=== PATIENT | female | born 1975 | race Caucasian/White ===

== ENCOUNTER 2018-07-06 15:16 | Emergency (ER) | payer BC ==
[~2018-07-06] VITALS: Wt 72.7 kg
[2018-07-06 16:12] LABS: BASO # 0.1 (0.02-0.10); EOS # 0.2 (0.04-0.40); HEMATOCRIT 44.5 % (37.0-47.0); HEMOGLOBIN 15.1 g/dL (12.5-16.0); LYMPH# 6.5 (1.50-4.00); MEAN CELL VOLUME 94 fl (78-100); MEAN CORPUSCULAR HEMOGLOBIN 32 pg (27-31); MEAN CORPUSCULAR HGB CONC 34 g/dL (33-37); MONO # 1.2 (0.20-0.80); NEU # 10.6 (1.40-6.50); PLATELET COUNT 378 K/mm3 (130-400); RED BLOOD COUNT 4.74 M/mm3 (4.10-5.30); RED CELL DISTRIBUTION WIDTH 12.8 % (11.5-14.5); WHITE BLOOD COUNT 18.6 K/mm3 (4.8-10.8)
[2018-07-06] MEDS ORDERED: HCTZ 25MG25 MG PO (16:12)
[2018-07-06] MEDS ORDERED: SINGULAIR 110 MG/TAB PO (16:14)
[2018-07-06 16:35] LABS: ALBUMIN 4.5 g/dL (3.5-5.0); ALT/SGPT 25 U/L (0-55); AST-SGOT 25 U/L (5-34); CALCIUM 9.6 mg/dL (8.4-10.2); GLUCOSE 100 mg/dL (65-105); POTASSIUM 3.3 mmol/L (3.5-5.1); SODIUM 137 mmol/L (136-145); TOTAL BILIRUBIN 0.3 mg/dL (0.2-1.2); TOTAL PROTEIN 7.6 g/dL (6.4-8.3)
[2018-07-06 16:38] LABS: CARBON DIOXIDE 16 mmol/L (22-29); TROPONIN-I < 0.03 ng/mL (<0.030)
[2018-07-06 17:00] VITALS: BP 134/88
== END 2018-07-06 17:24 | disposition home or self-care (01) ==
LOC: ED 15:16
PROVIDERS: Family Medicine
DX: R29.0 Tetany (principal); I10 Essential (primary) hypertension; F45.8 Other somatoform disorders; F17.210 Nicotine dependence, cigarettes, uncomplicated; J30.9 Allergic rhinitis, unspecified; Z90.89 Acquired absence of other organs

== ENCOUNTER → 2019-09-30 | Outpatient (CLI) | payer BC ==
[~2019-09-30] MED LIST: HCTZ 25MG25 MG PO; SINGULAIR 110 MG/TAB PO
== END ==
LOC: RAD 08:00
DX: S82.401D Unspecified fracture of shaft of right fibula, subsequent encounter for closed fracture with routine healing (principal)

== ENCOUNTER → 2019-10-05 | Outpatient (CLI) | payer BC | LOC: RAD 07:44 | DX: S82.831A Other fracture of upper and lower end of right fibula, initial encounter for closed fracture (principal) ==

== ENCOUNTER 2020-01-23 16:23 | Emergency (ER) | payer BC ==
[2020-01-23] MEDS ORDERED: ATORVASTATIN CA20 MG PO (16:38)
[2020-01-23] MEDS ORDERED: LORAZEPAM1 M1 PO (16:38)
[2020-01-23 16:58] LABS: EOS # 0.3 (0.04-0.40); EOS % 2.3 % (1.0-5.0); HEMATOCRIT 46.4 % (37.0-47.0); HEMOGLOBIN 15.7 g/dL (12.5-16.0); LYMPH# 3.7 (1.50-4.00); MEAN CELL VOLUME 95 fl (78-100); MEAN CORPUSCULAR HEMOGLOBIN 32 pg (27-31); MEAN CORPUSCULAR HGB CONC 34 g/dL (33-37); MEAN PLATELET VOLUME 8.6 fl (7.4-10.4); MONO # 0.5 (0.20-0.80); NEU # 9.5 (1.40-6.50); PLATELET COUNT 398 K/mm3 (130-400); RED BLOOD COUNT 4.91 M/mm3 (4.10-5.30); RED CELL DISTRIBUTION WIDTH 12.4 % (11.5-14.5); WHITE BLOOD COUNT 14.2 K/mm3 (4.8-10.8)
[2020-01-23 17:05] LABS: ALBUMIN 4.5 g/dL (3.5-5.0); POTASSIUM 3.3 mmol/L (3.5-5.1)
[2020-01-23 17:06] LABS: CALCIUM 9.6 mg/dL (8.3-10.5)
[2020-01-23 17:08] LABS: TOTAL PROTEIN 8.1 g/dL (6.4-8.3)
[2020-01-23 17:09] LABS: TOTAL BILIRUBIN 0.2 mg/dL (0.2-1.2)
[2020-01-23] MEDS ORDERED: TRAMADOL 50 MG TAB PO (18:49)
[2020-01-23 19:00] VITALS: BP 143/87
== END 2020-01-23 19:00 | disposition home or self-care (01) ==
LOC: ED 16:23
PROVIDERS: Family Medicine
DX: S20.219A Contusion of unspecified front wall of thorax, initial encounter (principal); S06.0X0A Concussion without loss of consciousness, initial encounter; E78.5 Hyperlipidemia, unspecified; Z88.0 Allergy status to penicillin; Z88.1 Allergy status to other antibiotic agents; V86.55XA Driver of 3- or 4- wheeled all-terrain vehicle (ATV) injured in nontraffic accident, initial encounter
CPT/HCPCS: 90715; J1885; L0172